=== PATIENT | female | born 1985 | race Caucasian/White ===

== ENCOUNTER 2019-06-03 10:30 | Outpatient (CLI) | payer OTHER ==
--- NOTE | 2019-06-03 11:44 | MRI ---
LUMBAR SPINE MRI WITHOUT IV CONTRAST: Date: 06/03/2019 HISTORY: Acute midline low back pain, getting worse. COMPARISON: 07/28/2014. FINDINGS: Conus medullaris region appears unremarkable. No evidence for significant abnormal marrow edema. Ther e are mild disc desiccation changes. Small 0.7 cm T2 hyperintense circumscribed focus in the right ki dney, statistically a small cyst. T12-L1: Unremarkable. L1-L2: Unremarkable. L2-L3: Unremarkable. L3-L4: Unremarkable. L4-L5: Unremarkable. L5-S1: Unremarkable. IMPRESSION: Unremarkable lumbar spine MRI without IV contrast. No evidence for disc herniation or significant can al, lateral recess, or foraminal stenosis. No evidence for abnormal marrow edema. Stable appearance f rom prior exam. POS: [facility]
== END 2019-06-03 10:31 | disposition home or self-care (01) ==
LOC: BICMRI 10:30
PROVIDERS: ATTEND Nurse Practitioner Family
DX: M54.5 Low back pain (principal)
CPT/HCPCS: 72148

== ENCOUNTER 2019-07-27 09:35 | Outpatient (CLI) | payer OTHER ==
--- NOTE | 2019-07-27 10:05 | RAD ---
Exam: 4 views of lumbar spine HISTORY: Lumbar spondylosis. Comparison none FINDINGS: Visualized sacrum and bony pelvis are intact. Incidental intrauterine device and surgical c lips noted 5 lumbar type vertebra. Lumbar spine vertebral body height is maintained. No fracture. Disc space hei ghts are preserved. In the neutral position, no spondylolisthesis. No spondylolysis. No abnormal motion upon extension or flexion IMPRESSION: No significant spondylolisthesis or spondylolysis. No abnormal motion upon flexion or ext ension.
== END 2019-07-27 09:36 | disposition home or self-care (01) ==
LOC: RAD 09:35
PROVIDERS: ATTEND Nurse Practitioner Family
DX: M47.816 Spondylosis without myelopathy or radiculopathy, lumbar region (principal)
CPT/HCPCS: 72110